=== PATIENT | female | born 2000 | race Caucasian/White ===

== ENCOUNTER 2024-03-09 22:02 | Outpatient (CLI) | payer BC, SELFPAY ==
[2024-03-09 22:31] VITALS: BP 137/90; PULSE 101
[2024-03-09 22:43] LABS: Basophils Percent Auto 0.2 % (0.2-1.2); Eosinophils Absolute Auto 0.1 K/mm3 (0-0.3); Eosinophils Percent Auto 1.1 % (0-4.4); Hematocrit 33.5 % (37.0-47.0); Hemoglobin 11.1 g/dL (12.0-15.0); Immature Granulocyte Absolute 0.05 K/mm3 (0.00-0.031); Immature Granulocyte Percent A 0.5 % (0-0.5); Lymphocytes Absolute Auto 1.79 K/mm3 (0.9-3.2); Lymphocytes Percent Auto 19.3 % (18.3-44.2); Mean Corpuscular HGB Conc 33.1 g/dl (32-36); Mean Corpuscular Hemoglobin 31.4 pg (26-34); Mean Corpuscular Volume 94.6 fl (80-100); Mean Platelet Volume 12.9 fl (7.4-10.4); Monocytes Absolute Auto 0.7 K/mm3 (0.1-0.6); Monocytes Percent Auto 7.1 % (2.6-8.5); Neutrophils Absolute Auto 6.7 K/mm3 (1.3-6.7); Neutrophils Percent Auto 71.8 % (45.5-73.1); Platelet Count Result 135 k/mm3 (150-375); Red Blood Count 3.54 M/mm3 (4.2-5.4); Red Cell Distribution Width 13.8 % (11.5-14.5); White Blood Count 9.3 K/mm3 (4.5-10.0)
[2024-03-09 22:45] LABS: Add Urine Microscopic? NO; Appearance Urine Clear (Clear); Bilirubin Urine Negative (Negative); Blood Urine Negative (Negative); Color Urine Yellow (Yellow); Glucose Urine UA Negative (Negative); Ketones Urine Negative (Negative); Leukocyte Esterase Ur Negative LEU/UL (Negative); Nitrate Urine Negative (Negative); Protein Urine Negative (Negative); Specific Grav Ur 1.003 (1.001-1.035); Urobilinogen Urine 0.2 mg/dL (<2.0)
[2024-03-09 22:46] VITALS: BP 117/59; PULSE 115
[2024-03-09 22:50] VITALS: BMI 37.5
[2024-03-09 22:54] LABS: Alanine Aminotransferase 13 U/L (6-35); Albumin Level 3.7 g/dL (3.5-5.1); Alkaline Phosphatase 231 U/L (38-126); Anion Gap 9 mmol/L (4-12); Aspartate Amino Transferase 21 U/L (14-36); Bilirubin,Total 0.6 mg/dL (0.2-1.3); Blood Urea Nitrogen 6 mg/dL (7-17); Calcium 9.1 mg/dL (8.4-10.2); Carbon Dioxide 20 mmol/L (22-30); Chloride 105 mmol/L (98-107); Estimated CRCL calculation 154 ml/min; Estimated Glomerular Filt Rate > 60; Glucose 118 mg/dL (65-110); Potassium 3.7 mmol/L (3.4-5.0); Sodium 134 mmol/L (137-145); Uric Acid 3.6 mg/dL (2.5-7.5)
[2024-03-09 22:55] LABS: Creatinine Urine 17.4 mg/dL; Total Protein Urine Random 14 mg/dL
[2024-03-09 23:00] VITALS: BP 118/72; PULSE 98
--- NOTE | 2024-03-09 23:10 | PC.NURSE ---
Called Dr Daniel Chu with pt status. Lab results and BPs given. Pt states that she has had a headache and nausea today, with no relief from Tylenol. May D/C home. Give Flexeril prior to admission. Pt's significant other is driving home.
[2024-03-09 23:15] VITALS: BP 125/74; PULSE 98
[2024-03-09] MEDS: CYCLOBENZAPRINE HCL 10 MG TABLET PO (23:24)
== END 2024-03-09 23:25 | disposition home or self-care (01) ==
LOC: ANHOBOP 22:17 → ANHOBPP 03-15 09:20
PROVIDERS: Visit Provider Obstetrics & Gynecology
DX: O13.9 Gestational [pregnancy-induced] hypertension without significant proteinuria, unspecified trimester (principal); Z3A.00 Weeks of gestation of pregnancy not specified
CPT/HCPCS: 36415; 59025; 80053; 81003; 82570; 84156; 84550; 85025; 99199; A9270

== ENCOUNTER 2024-03-19 17:43 | Outpatient (CLI) | payer BC, SELFPAY ==
[2024-03-19 18:03] LABS: Basophils Percent Auto 0.4 % (0.2-1.2); Eosinophils Absolute Auto 0.1 K/mm3 (0-0.3); Eosinophils Percent Auto 0.8 % (0-4.4); Hematocrit 36.3 % (37.0-47.0); Immature Granulocyte Absolute 0.04 K/mm3 (0.00-0.031); Immature Granulocyte Percent A 0.5 % (0-0.5); Immature Platelet Fraction Pct 16.1 % (0.9-11.2); Lymphocytes Absolute Auto 1.76 K/mm3 (0.9-3.2); Lymphocytes Percent Auto 20.7 % (18.3-44.2); Mean Corpuscular HGB Conc 33.1 g/dl (32-36); Mean Corpuscular Hemoglobin 31.3 pg (26-34); Mean Corpuscular Volume 94.8 fl (80-100); Mean Platelet Volume 13.2 fl (7.4-10.4); Monocytes Absolute Auto 0.6 K/mm3 (0.1-0.6); Monocytes Percent Auto 7.2 % (2.6-8.5); Neutrophils Percent Auto 70.4 % (45.5-73.1); Platelet Count Result 146 k/mm3 (150-375); Red Blood Count 3.83 M/mm3 (4.2-5.4); Red Cell Distribution Width 14.4 % (11.5-14.5); White Blood Count 8.5 K/mm3 (4.5-10.0)
[2024-03-19 18:09] LABS: Creatinine Urine 54.2 mg/dL; Total Protein Urine Random 10 mg/dL; Ur Ttl Prot Creatinine Ratio 0.18 mg/mg (0-0.20)
[2024-03-19 18:12] LABS: Alanine Aminotransferase 11 U/L (6-35); Albumin Level 3.7 g/dL (3.5-5.1); Alkaline Phosphatase 254 U/L (38-126); Anion Gap 8 mmol/L (4-12); Aspartate Amino Transferase 21 U/L (14-36); Bilirubin,Total 0.7 mg/dL (0.2-1.3); Blood Urea Nitrogen 7 mg/dL (7-17); Calcium 8.9 mg/dL (8.4-10.2); Carbon Dioxide 19 mmol/L (22-30); Chloride 107 mmol/L (98-107); Estimated Glomerular Filt Rate > 60; Glucose 105 mg/dL (65-110); Potassium 3.8 mmol/L (3.4-5.0); Sodium 134 mmol/L (137-145); Uric Acid 4.5 mg/dL (2.5-7.5)
[2024-03-19 18:14] VITALS: BP 130/98; PULSE 118
[2024-03-19 18:15] VITALS: BP 138/90; PULSE 106
[2024-03-19 18:26] LABS: Add Urine Microscopic? NO; Appearance Urine Clear (Clear); Bilirubin Urine Negative (Negative); Blood Urine Negative (Negative); Color Urine Yellow (Yellow); Glucose Urine UA Negative (Negative); Ketones Urine Negative (Negative); Leukocyte Esterase Ur Negative LEU/UL (Negative); Nitrate Urine Negative (Negative); Protein Urine Negative (Negative); Specific Grav Ur 1.009 (1.001-1.035); pH Urine 7.5 (5.0-9.0)
[2024-03-19 18:30] VITALS: BP 134/91; PULSE 115
[2024-03-19 18:45] VITALS: BP 135/99; PULSE 130
[2024-03-19] MEDS: ACETAMINOPHEN 500 MG TABLET 1000 MG PO (18:52)
== END 2024-03-19 19:15 | disposition home or self-care (01) ==
LOC: ANHOBOP 17:47 → ANHLDR 17:54
PROVIDERS: Visit Provider Obstetrics & Gynecology Gynecology
DX: O13.9 Gestational [pregnancy-induced] hypertension without significant proteinuria, unspecified trimester (principal); Z3A.00 Weeks of gestation of pregnancy not specified
CPT/HCPCS: 36415; 80053; 81003; 82570; 84156; 84550; 85025; 85055; 99199; A9270

== ENCOUNTER 2024-03-20 17:07 | Inpatient (IN) | payer BC, SELFPAY ==
[2024-03-20] VITALS (8 sets, daily range): BP systolic 127–138; BP diastolic 78–98; PULSE 84–105; TEMP 36.9; BMI 40.3
[2024-03-20] MEDS: DINOPROSTONE 10 MG VAG INSERT VAGINAL (17:50)
[2024-03-20 17:52] LABS: Basophils Percent Auto 0.3 % (0.2-1.2); Eosinophils Absolute Auto 0.1 K/mm3 (0-0.3); Eosinophils Percent Auto 0.6 % (0-4.4); Hematocrit 34.4 % (37.0-47.0); Hemoglobin 11.6 g/dL (12.0-15.0); Immature Granulocyte Absolute 0.08 K/mm3 (0.00-0.031); Immature Granulocyte Percent A 0.7 % (0-0.5); Lymphocytes Absolute Auto 1.45 K/mm3 (0.9-3.2); Lymphocytes Percent Auto 13.4 % (18.3-44.2); Mean Corpuscular HGB Conc 33.7 g/dl (32-36); Mean Corpuscular Volume 94.8 fl (80-100); Mean Platelet Volume 13.3 fl (7.4-10.4); Monocytes Absolute Auto 0.7 K/mm3 (0.1-0.6); Neutrophils Absolute Auto 8.6 K/mm3 (1.3-6.7); Platelet Count Result 145 k/mm3 (150-375); Red Blood Count 3.63 M/mm3 (4.2-5.4); Red Cell Distribution Width 14.4 % (11.5-14.5); White Blood Count 10.8 K/mm3 (4.5-10.0)
--- NOTE | 2024-03-20 18:06 | LDADM ---
This patient, Glenys Pitts, was admitted to Labor/Delivery/Recovery 108 on 03/20/24 at 17:07. Plans for labor, pain management and were discussed with patient. Patient/family oriented to hospital policies and general routines including ID bracelet, bed and alarms, visiting hours, pain management, procedures, bathroom and other care routines, personal items, smoking policy, room service/diet and guest tray routines, infant security routines, and visiting hours. Patient/Family are encouraged to report perceived risks to care and to ask questions if they do not understand what they are told or what they should do. See OBIX for further documentation.
[2024-03-20 18:26] LABS: Rapid Plasma Reagin Non-Reactive (NonReactive)
[2024-03-20 18:36] LABS: Rubella IgG Antibody 6.1 IU/ML
[2024-03-20 18:46] LABS: HIV 1/2 Ab P24 Ag Result Negative (Negative)
[2024-03-21] VITALS (204 sets, daily range): BP systolic 70–147; BP diastolic 38–118; PULSE 45–144; RESP 18–20; TEMP 36.5–37.2; O2SAT 86–100
[2024-03-21] MEDS: fentaNYL CITRATE INJ (*CRX) 100 MCG/2 ML VIAL 50 MCG IV PUSH (02:24)
--- NOTE | 2024-03-21 02:51 | PM.IMHP ---
H&P: HPI History of Present Illness Date/Time: 03/21/24 02:51 Chief Complaint: Elevated blood pressure term Narrative: 23-year-old para 0 last menstrual of 06/26/2023, EDC is 04/02/2024, who presents at term for induction of labor secondary to elevated blood pressures she is negative for group B strep. She is on [place] rupture at 12:30 a.m. this a.m. [facility] Family History Family History Other Patient denies significant medical history Social History Social History Smoking status: Never smoker Substance use: never Do You Feel Safe in your Home?: No Lack of Transportation: No Lack of Food: Never True Current Housing: I Have Housing Concerned About Future Housing: No Difficulty Paying Gas/Electric Bills: No Difficulty Paying for Meds: No Currently Unemployed: No Education: Associate Degree Difficulty w/ Childcare or Family Care: No Spiritual care concerns: No Meds Home Medications and Allergies Home Medications Medication Instructions Recorded Confirmed Type prenat.vits,taniya,[id number]-iaxmc 1 tablet PO DAILY 03/03/24 03/20/24 History Acetaminophen Extra Strength 500 - 1,000 mg PO BID PRN h/a 03/20/24 03/20/24 History Allergies Allergy/AdvReac Type Severity Reaction Status Date / Time No Known Allergies Allergy Verified 03/03/24 13:35 Vital Signs Vital Signs - 24 hr 03/20/24 17:44 03/20/24 18:01 03/20/24 18:15 Temperature 98.4 F Pulse Rate 99 97 Blood Pressure 136/89 127/83 Oxygen Delivery 03/20/24 18:30 03/20/24 18:46 03/20/24 19:00 Temperature Pulse Rate 105 H 89 86 Blood Pressure 130/85 130/78 133/81 Oxygen Delivery 03/20/24 19:15 03/20/24 19:30 03/21/24 00:01 Temperature Pulse Rate 102 H 84 Blood Pressure 127/98 H 138/91 H 107/92 H Oxygen Delivery 03/21/24 01:45 03/21/24 02:19 03/21/24 02:31 Temperature 98.3 F Pulse Rate 79 84 Blood Pressure 124/77 113/60 Oxygen Delivery 03/20/24 18:06 Temperature Pulse Rate Blood Pressure Oxygen Delivery Room Air Exam Const: General: cooperative, healthy appearing and comfortable Nutritional Appearance: average body habitus Orientation/consciousness: oriented to person, oriented to place and oriented to time Resp: Effort & Inspection: normal respiratory effort Cardio: Rate: regular rate Rhythm: regular rhythm Heart sounds: S1 normal heart sound present and S2 normal heart sound present GI: Inspection: normal to inspection ( gravid soft) : External Female Exam: normal external appearance Speculum Exam - Vagina: normal appearance of the vagina Speculum Exam - Cervix: normal appearance of the cervix ( cervix 2cm 50%. Clear fluid. FHTs reassuring) H&P: Results Labs Labs: Short CBC 03/20/24 Range/Units 17:38 WBC 10.8 H (4.5-10.0) K/mm3 Hgb 11.6 L (12.0-15.0) g/dL Hct 34.4 L (37.0-47.0) % Plt Count 145 L (150-375) k/mm3 Assessment and Plan Assessment and plan (1) Term : Code(s): Z34.90 - Encounter for supervision of normal , unspecified, unspecified trimester Status: Acute (2) Gestational hypertension: Code(s): O13.9 - Gestational [-induced] hypertension without significant proteinuria, unspecified trimester Status: Acute Plan medical induction of labor spontaneous vaginal delivery is expected. She is epidural candidate
[2024-03-21] MEDS: LACTATED RINGERS 1,000 ML 125 ML IV CONT ×2 (03:08→07:11)
--- NOTE | 2024-03-21 03:53 | PM.OBPNLAB ---
Pain Control Date/time seen: 03/21/24 03:53 Pain control: tolerating well Pelvic Exam Dilation (cm): 3 Effacement (%): 100 station: -1 Amniotic membrane status: Leaking Contractions Monitor mode: Internal ( IUPC placed)
--- NOTE | 2024-03-21 04:29 | WPDANESEPPF ---
Anes - Initial Pre Proc Eval Date/Time: 03/21/24 04:29 Surgeon: Jorge Chu MD Pre Op Diagnosis: Induction of Labor/GHTN Patient Data Age: 23 Gender: F Height: 1.57 m Weight: 100 kg Last Vital Signs Temp 36.8 C 03/21/24 01:45 Pulse 113 H 03/21/24 04:28 BP 95/44 L 03/21/24 04:28 Pulse Ox 100 03/21/24 04:29 O2 Del Method Room Air 03/20/24 18:06 Allergies Allergy/AdvReac Type Severity Reaction Status Date / Time No Known Allergies Allergy Verified 03/03/24 13:35 Home Medications Medication Instructions Recorded Confirmed Type prenat.vits,taniya,pqk-[id number]-dxywk 1 tablet PO DAILY 03/03/24 03/20/24 History Acetaminophen Extra Strength 500 - 1,000 mg PO BID PRN h/a 03/20/24 03/20/24 History Laboratory Tests 03/20/24 17:38 WBC 10.8 H K/mm3 (4.5-10.0) RBC 3.63 L M/mm3 (4.2-5.4) Hgb 11.6 L g/dL (12.0-15.0) Hct 34.4 L % (37.0-47.0) MCV 94.8 fl (80-100) MCH 32.0 pg (26-34) MCHC 33.7 g/dl (32-36) RDW 14.4 % (11.5-14.5) Plt Count 145 L k/mm3 (150-375) MPV 13.3 H fl (7.4-10.4) Immature Gran % (Auto) 0.7 H % (0-0.5) Neut % (Auto) 79.0 H % (45.5-73.1) Lymph % (Auto) 13.4 L % (18.3-44.2) [place] % (Auto) 6.0 % (2.6-8.5) Eos % (Auto) 0.6 % (0-4.4) Baso % (Auto) 0.3 % (0.2-1.2) Lymph # (Auto) 1.45 K/mm3 (0.9-3.2) [place] # (Auto) 0.7 H K/mm3 (0.1-0.6) Eos # (Auto) 0.1 K/mm3 (0-0.3) Baso # (Auto) 0.0 K/mm3 (0.0-0.1) Abs Immat Gran (auto) 0.08 H K/mm3 (0.00-0.031) Absolute Neuts (auto) 8.6 H K/mm3 (1.3-6.7) Absolute Nucleated RBC 0.000 K/mm3 (0.0-0.012) Nucleated RBC % 0.0 % (0.0-0.2) % Immature Plt Fraction 18.0 H % (0.9-11.2) RPR Non-reactive (NonReactive) HIV 1&2 Ab/P24 Ag 4thGn Negative (Negative) Rubella IgG Antibody 6.1 L IU/ML (10 - ) Blood Type O Positive Antibody Screen Negative Patient hx anesthesia problems: none Family hx anesthesia problems: none Results Review: All pre-operative results and documents have been reviewed as part of the pre-operative evaluation. [facility] Family History Family History Other Patient denies significant medical history Social History Social History Smoking status: Never smoker Substance use: never Do You Feel Safe in your Home?: No Lack of Transportation: No Lack of Food: Never True Current Housing: I Have Housing Concerned About Future Housing: No Difficulty Paying Gas/Electric Bills: No Difficulty Paying for Meds: No Currently Unemployed: No Education: Associate Degree Difficulty w/ Childcare or Family Care: No Spiritual care concerns: No Anes - Eval Final PreProcedure Day of Procedure 03/21/24 04:29 Patient weight: morbidly obese Neurological: alert and oriented ASA classification: III Emergent: no Anesthetic plan: proceed Anesthesia type and monitoring: regional epidural and standard monitoring Results Review: All pre-operative results and documents have been reviewed as part of the pre-operative evaluation. Informed Consent: The patient's anesthetic plan and its attendant risks and benefits were discussed with the patient/family/POA. Questions were solicited and answers provided to the satisfaction of the patient/family/POA.
[2024-03-21] MEDS: PHENYLEPHRINE 1,000 MCG/10 ML SYRINGE 100 MCG IV PUSH ×2 (04:45→04:53)
[2024-03-21] MEDS: OXYTOCIN 30 UNITS/NS 500 ML 30 UNITS/500 ML BAG 6 UNITS IV CONT ×2 (05:48→17:05)
--- NOTE | 2024-03-21 07:47 | PM.OBPNLAB ---
Pain Control Date/time seen: 03/21/24 07:47 Pain control: tolerating well and epidural Pelvic Exam Dilation (cm): 8 Effacement (%): 100 station: -1 Amniotic membrane status: Leaking Contractions Monitor mode: Internal ( IUPC placed)
[2024-03-21] MEDS: ONDANSETRON INJ 4 MG/2 ML VIAL IV PUSH (07:55)
[2024-03-21] MEDS: ACETAMINOPHEN 500 MG TABLET 1000 MG PO (12:24)
--- NOTE | 2024-03-21 16:00 | PM.OBPNLAB ---
Pain Control Date/time seen: 03/21/24 16:00 Pain control: tolerating well and epidural Pelvic Exam Dilation (cm): 10 Effacement (%): 100 station: -1 Amniotic membrane status: Leaking Contractions Monitor mode: Internal ( IUPC placed)
--- NOTE | 2024-03-21 16:50 | PM.OBPRVD ---
OB - Vaginal Delivery Note Procedure Delivery date: 03/21/24 Events: Gestational Hypertension Induction method: Per Cervidil Protocol Delivery augmentation: Pitocin Delivery monitor: External FHT, Internal FHT and Internal Uterine Route of delivery: Episiotomy description: None Laceration Description: Perineal - 1st Degree Delivery repair: vicryl Specimen: No Quantitative Blood Loss (ml): 61 Anesthesia type: Epidural Disposition: Floor Complications: No immediate complications Narrative: Patient was admitted for induction of labor secondary to elevated blood pressures on the evening of 03/20/2024. Cervidil was placed she spontaneously ruptured a.m. she progressed to an unremarkable 1st stage of labor to completely dilated she pushed for couple hours and the of delivered the head spontaneously in the CHAY position. Anterior posterior shoulder spontaneously. Cord clamped x2 and cut and the passed off the table given Apgars of 9 [id number] 9 [id number]. Cord blood was drawn placenta delivered intact spontaneously. Twenty of Pitocin placed in IV to help firm the uterus. After aspect lateral sidewalls of first-degree laceration was noted and it was closed with [id number] 0 Vicryl blood loss was estimated at61cc. All sponge, needle, instrument counts were correct. There were no immediate complications [place] Baby Date of : 03/21/24 Time of : 16:37 Gestational Age by Date: 38 gender: Male Weight (pounds): 8 Weight (ounces): 0 presentation: vertex position: Right Occiput Anterior Placenta delivery description: Spontaneous Cord Vessel Description: 3 Vessels score one minute: 9 score five minutes: 9
--- NOTE | 2024-03-21 16:55 | PM.DS ---
DS: Admitting Diagnosis Discharge Date 03/23/2024 Admitting Diagnosis term /gestational hypertension DS: Discharge Diagnosis Discharge Diagnosis (1) Gestational hypertension: Code(s): O13.9 - Gestational [-induced] hypertension without significant proteinuria, unspecified trimester Status: Acute (2) Term : Code(s): Z34.90 - Encounter for supervision of normal , unspecified, unspecified trimester Status: Acute DS: Summary Hospital Course Reason for hospitalization: patient was admitted for induction of labor. She underwent spontaneous vaginal delivery on 04/13. Hospital Course: Patient says course unremarkable. She she was afebrile she was up, voiding without difficulty, eating regular diet, ambulating, generally without complaints. Time Spent with Patient Time attestation: Total time spent providing and/or coordinating discharge services: Exam Const: General: cooperative, healthy appearing and comfortable Orientation/consciousness: oriented to person, oriented to place and oriented to time Resp: Effort & Inspection: normal respiratory effort Cardio: Rate: regular rate Rhythm: regular rhythm Heart sounds: S1 normal heart sound present and S2 normal heart sound present GI: Inspection: normal to inspection DS: Data Data Completed and Pending Labs on day of discharge: Labs from last 24 hours 03/20/24 17:38 WBC 10.8 H RBC 3.63 L Hgb 11.6 L Hct 34.4 L MCV 94.8 MCH 32.0 MCHC 33.7 RDW 14.4 Plt Count 145 L MPV 13.3 H Immature Gran % (Auto) 0.7 H Neut % (Auto) 79.0 H Lymph % (Auto) 13.4 L [place] % (Auto) 6.0 Eos % (Auto) 0.6 Baso % (Auto) 0.3 Lymph # (Auto) 1.45 [place] # (Auto) 0.7 H Eos # (Auto) 0.1 Baso # (Auto) 0.0 Abs Immat Gran (auto) 0.08 H Absolute Neuts (auto) 8.6 H Absolute Nucleated RBC 0.000 Nucleated RBC % 0.0 % Immature Plt Fraction 18.0 H RPR Non-reactive HIV 1&2 Ab/P24 Ag 4thGn Negative Rubella IgG Antibody 6.1 L Blood Type O Positive Antibody Screen Negative Discharge Plan Discharge Attending physician on discharge: Jorge Agosto Discharging Clinician: Dalla Clayton,Jorge J. Patient Disposition: Home, Self-Care Activity: may shower and pelvic rest Diet: heart healthy Wound Care Instructions: follow printed instructions Patient Instructions: Antibiotic Form Stand Alone Forms: General Discharge Information Follow-up/Referrals: Jorge Agosto MD [Physician] - Discharge Medications: Continued prenat.vits,taniya,yhd-qtgw-yilfu Tablet 1 tablet PO DAILY Acetaminophen Extra Strength 500 mg 500 - 1,000 mg PO BID PRN (Reason: h/a) Date of admission: 03/20/24 17:07 Primary Care Provider: UNKNOWN,DOCTOR Admitting Provider: Jorge Agosto Attending physician on admission: Jorge Agosto Condition: Stable
[2024-03-21] MEDS: IBUPROFEN 600 MG TABLET PO (18:06)
--- NOTE | 2024-03-21 19:23 | OBPPTRN ---
Patient transferred to post room #277 via wheelchair. Support person present. Oriented to unit, room, information board, rooming in, admission packet and security measures. Patient verbalizes understanding.
[2024-03-22 04:29] LABS: Hematocrit 31.1 % (37.0-47.0); Hemoglobin 10.3 g/dL (12.0-15.0)
[2024-03-22 04:32] VITALS: BP 106/73
[2024-03-22 06:55] VITALS: BP 129/87; PULSE 78; RESP 18; TEMP 36.4; O2SAT 97
[2024-03-22] MEDS: MULTIVIT/MIN/PREN/FOL AC/IRON TABLET 1 TAB PO (06:55)
[2024-03-22] MEDS: DOCUSATE SODIUM 100 MG CAPSULE PO ×2 (06:55→16:58)
--- NOTE | 2024-03-22 07:05 | PM.OBPNVD ---
OB - PN: Subj Subjective Date/time seen: 03/22/24 07:05 Patient comments: no complaints and pain well controlled baby status: doing well and nursing well OB - PN: Obj Data Labs 03/22/24 03:27 Labs: Laboratory Results - last 24 hr 03/22/24 03:27 Hgb 10.3 L Hct 31.1 L OB - PN A/P Plan day: 1 Plan: routine care Time Spent With Patient Time: Total time spent is greater than 50% in coordination of care (as documented) at patient's floor/unit and/or counseling patient: Time with patient: less than 15 minutes Exam Const: General: cooperative, healthy appearing and comfortable Nutritional Appearance: average body habitus Orientation/consciousness: oriented to person, oriented to place and oriented to time Resp: Effort & Inspection: normal respiratory effort Cardio: Rate: regular rate Rhythm: regular rhythm Heart sounds: S1 normal heart sound present and S2 normal heart sound present GI: Inspection: normal to inspection
[2024-03-22] MEDS: IBUPROFEN 600 MG TABLET PO ×2 (08:59→21:30)
[2024-03-22 12:14] VITALS: BP 126/77; PULSE 82; RESP 16; TEMP 36.5; O2SAT 98
[2024-03-22 16:25] VITALS: BP 133/90; PULSE 91; RESP 18; TEMP 36.6; O2SAT 100
--- NOTE | 2024-03-22 16:54 | PC.NURSE ---
Introductions were made, then consulted with patient to assess needs related to . Mother led the conversation with her?plans to feed?her and the?experience so far. Mother states that feedings have been going well today. Mother has visitors in room but will call this RN once they leave to review her personal breast pump and assist with next feeding to assure infants latch is appropriate. Communication board updated with contact information.
[2024-03-22 19:16] VITALS: BP 127/83; PULSE 83; RESP 20; TEMP 36.9; O2SAT 98
[2024-03-22 22:22] VITALS: BP 117/68
--- NOTE | 2024-03-23 07:01 | PM.OBPNVD ---
OB - PN: Subj Subjective Date/time seen: 03/23/24 07:01 Patient comments: no complaints and pain well controlled baby status: doing well and nursing well OB - PN: Obj Data Labs 03/22/24 03:27 OB - PN A/P Plan day: 2 Plan: routine care, discharge home and follow up 6 weeks Time Spent With Patient Time: Total time spent is greater than 50% in coordination of care (as documented) at patient's floor/unit and/or counseling patient: Time with patient: less than 15 minutes Exam Const: General: cooperative, healthy appearing and comfortable Nutritional Appearance: average body habitus Orientation/consciousness: oriented to person, oriented to place and oriented to time Resp: Effort & Inspection: normal respiratory effort GI: Inspection: normal to inspection
[2024-03-23 07:20] VITALS: BP 143/86; PULSE 89; RESP 16; TEMP 36.6; O2SAT 99
[2024-03-23] MEDS: MULTIVIT/MIN/PREN/FOL AC/IRON TABLET 1 TAB PO (07:55)
[2024-03-23] MEDS: IBUPROFEN 600 MG TABLET PO (07:56)
[2024-03-23] MEDS: DOCUSATE SODIUM 100 MG CAPSULE PO (07:56)
[2024-03-23] MEDS: MEASLES,MUMPS,RUBELLA VACCINE 0.5 ML VIAL SUB-Q (07:57)
[2024-03-23] MEDS: INFLUENZA TRIVALENT VACCINE 45 MCG/0.5 ML SYRINGE IM (09:24)
--- NOTE | 2024-03-23 09:55 | PC.NURSE ---
0700- Consulted with patient to assess needs related to . Discussed with mother her successes, concerns and any questions she has. We reviewed working with the , supporting breast, obtaining a deep latch, good positioning. Encouraged understanding the benefits of skin to skin, responding to feeding cues, frequencies of feeding 8-12 times in 24 hours (approximately 2-3 hours), duration of feedings, milk production, and pumping when infant doesn't breastfeed. Reviewed positioning and alignment, supporting breast, off-centered (asymmetrical latch) and leading with the chin with big, open, wide gape. latched as deeply as he could to the [left] breast in [cradle] position. The left nipple is larger and baby can only get the nipple in his mouth. Mom uses the nipple shield on the right side because the nipple is smaller and has a hard time maintaining the latch. Education given to the mother of how to visualize the suckling. The was [not able] to maintain latch. Nipple care reviewed with optimal latch, good positioning. Encouraged regular pumping if infant doesn't breastfeed well, and while using the nipple shield. She has a Spectra pump and did pump with the [facility] Medela pump once in the night. She supplements with formula per her preference. Mother voiced understanding of the education shared, to call for assistance if the does not latch or if there is discomfort with . Reported to the Primary RN. 0924- Mother is feeding appropriately for growth of and understands stimulating to eat if needed. Infant has had appropriate feedings in the last 24 hours meets the outcomes for weight, output, blood sugar and jaundice at this time. Reinforced understanding of milk production, transition of milk, signs of adequate intake, transition of stool, prevention/relief of engorgement, plugged ducts, mastitis, responsive watching for feeding cues, the different methods of stimulating infant to breastfeed 1-3 hours after the start of the last feeding, community resources, and when to call a provider using the resource of the feeding sheet along with the mom and baby guide. Handouts given including pumping primer and is baby getting enough. Mother voiced understanding of the information shared, is confident to continue effectively her infant at home, when to call for assistance, denies any additional assistance or education at this time. Reported to the Primary RN.
[2024-03-24 14:20] VITALS: BP 140/88; PULSE 89; RESP 18; TEMP 36.8; O2SAT 98
== END 2024-03-23 11:10 | disposition home or self-care (01) | DRG 807 ==
LOC: ANHLDR 03-21 16:58 → ANHOB2 03-21 19:35
PROVIDERS: Admitting Provider Obstetrics & Gynecology; Visit Provider Obstetrics & Gynecology
DX: O13.4 Gestational [pregnancy-induced] hypertension without significant proteinuria, complicating childbirth (principal); Z37.0 Single live birth; Z3A.38 38 weeks gestation of pregnancy; O70.0 First degree perineal laceration during delivery; Z23 Encounter for immunization
CPT/HCPCS: 36415; 85014; 85018; 85025; 85055; 86592; 86703; 86762; 86850; 86900; 86901; 90471; 90656; 90710; A9270; G0008; G0432; J2371; J2405; J2590; J2795; J3010; J7120

== ENCOUNTER 2024-07-03 10:03 | Outpatient (RCR) | payer BC, SELFPAY ==
--- NOTE | 2024-07-03 10:05 | PC.NURSE ---
In- 1005 Out- 1045 Reason for visit: Glenys is concerned that baby Chucho isn't latching well on the left breast. She also has significantly less milk from the right breast than from the left. Baby is refusing the breast at some feedings. History: Glenys delivered vaginally on 03/21/24. Her was complicated by gestational hypertension. She struggled with latch in the beginning but after a week, baby was exclusively . She has successfully breastfed for the last 3 months. She started on a progesterone only control in May. She has had three periods since beginning control. The right breast has always had a significantly lower milk production than the left breast. She had a milk bleb on the left nipple and she tried using a shield to protect the nipple. The shield causing rubbing and the nipple became cracked and was bleeding. Since then, she has only pumped the left breast and fed baby from the right breast. History: Chucho was initially supplementing with formula while he was being treated for elevated bilirubin. At 1 week of age, he was able to latch and effectively feed at the breast. He has been exclusively since. He has started refusing the breast at some feedings and is fussy. Mom is supplementing him with pumped breastmilk after he feeds from the right breast due to it's lower milk supply. Observations: Glenys tried to latch Chucho to the right breast but he would not open to latch and became fussy. She then latched baby to the left breast off and on several times. The latch was very good today, with baby taking a large mouthful of breast tissue. His upper lip tends to roll in and mom says she usually has to flip it out at each feeding. Today, latching to the left nipple was not painful and mom was reassured that the latch is good and her pain/trauma was likely cause by the milk bleb scabbing and use of the nipple shield rather than a latch problem. Baby had heavy swallows and suckled for a few minutes at a time before fussing. Mom would attempt to burp him and offer the breast again. He spit up a small amount of milk while burping. Mom says that she does feel like the left breast has a quick letdown but infant didn't seem to struggle or pull away with letdown. Plan of Care: Because Glenys has had 3 periods in the last month, she is advised to call her [employer] Dr. Daniel Chu to follow up. We discussed that beginning menstruation again after can cause infants to refuse the breast. Encouraged continued feeding at the breast, and pumping the right breast after feedings until 2 minutes after the milk stops flowing. This will fully empty the breast and encourage an increase in milk production. We measured mom's nipples to ensure she is using a good flange size. She measures at 16mm after feeding and 15mm before feeding. She is using the 21mm flange and will try the 19mm flange to see if that increases production at all. She was given the Increasing Milk Supply handout with tips to use to help increase her supply. She has a Spectra and Mom Cozy pump and she states they work equally well. Advised trying the Spectra on the right breast to see if that helps. The cracked and sore left nipple is almost completely healed and she is able to latch to that side without pain. No further intervention is needed, as this was not due to a latch issue. Follow up plans: Mom will try the suggested interventions to increase her milk supply in the right breast (not the left to prevent oversupply). She will talk to her doctor about her frequent periods. She will allow baby to feed from both breasts frequently and supplement with pumped milk if he refuses to breastfeed. Mom is strongly encouraged to call us or make another appointment if her milk supply does not increase or if baby continues to refuse the breast. Patient agrees to call as needed.
== END 2024-10-01 23:59 | disposition home or self-care (01) ==
LOC: ANHOBOP 10:03
PROVIDERS: Visit Provider Pediatrics
DX: O92.79 Other disorders of lactation (principal)
CPT/HCPCS: 99202; G0463

== ENCOUNTER 2024-07-21 12:03 | Emergency (ER) | payer BC, SELFPAY ==
--- NOTE | 2024-07-21 12:05 | ED_ITS ---
HPI - Eye Problem General Chief complaint: Eye Problems Stated complaint: SWOLLEN EYE Time Seen by Provider: 07/21/24 12:04 Source: patient Mode of arrival: ambulatory Limitations: no limitations History of Present Illness HPI Narrative: Patient is a 23-year-old female who presents with a swollen right upper eyelid for several days. Has been using warm compresses and washing face daily. Denies any vision changes, drainage from a high, itching. Reports pain 5/10. Related Data Home Medications ?Medication ?Instructions ?Recorded ?Confirmed ?Last Taken ?Type prenat.vits,taniya,[id number] 1 tablet PO DAILY 03/03/24 07/21/24 03/19/24 History drospirenone (contraceptive) 4 mg 4 mg PO DAILY 07/21/24 07/21/24 Unknown History (28) tablet (Slynd) Allergies Allergy/AdvReac Type Severity Reaction Status Date / Time No Known Allergies Allergy Verified 07/21/24 12:22 Review of Systems Review of Systems: All systems reviewed & are unremarkable except as noted in HPI and below Constitutional: Constitutional: Denies body ache(s), Denies fever(s), Denies headache(s), Denies malaise and Denies weakness Eyes: Eyes: Denies blurry vision, Denies eye discharge, Denies irritation, Denies itchy eyes, Denies loss of vision, Reports eye pain and Reports other (eye lid swelling) ENT: Denies otalgia, Denies headache(s), Denies nasal discharge, Denies sinus pain and Denies sore throat Cardiovascular: Cardiovascular: Denies chest pain, Denies irregular heart rhythm and Denies dyspnea Respiratory: Respiratory: Denies dyspnea Gastrointestinal: Gastrointestinal: Denies abdominal pain, Denies diarrhea, Denies nausea and Denies vomiting Musculoskeletal: Musculoskeletal: Denies back pain, Denies myalgias and Denies arthralgias Integumentary/Breasts: Skin/Breast: Denies pruritus and Denies rash Neurologic: Denies headache(s), Denies loss of vision and Denies weakness Psychiatric: Psychiatric: Reports no additional psychiatric complaints Allergic/Immunologic: Allergic/Immunologic: Reports itchy eyes PMFSH Family History Family History Other Patient denies significant medical history Social History Social History Smoking status: Never smoker Substance use: never Do You Feel Safe in your Home?: No Lack of Transportation: No Lack of Food: Never True Current Housing: I Have Housing Concerned About Future Housing: No Difficulty Paying Gas/Electric Bills: No Difficulty Paying for Meds: No Currently Unemployed: No Education: Associate Degree Difficulty w/ Childcare or Family Care: No Spiritual care concerns: No Comments At time of signature, agree with nursing past medical, surgical, social and family history. There is no relevant family history pertinent to the presenting complaint. Exam Const: General: cooperative, healthy appearing, comfortable, no acute distress and well nourished Nutritional Appearance: well nourished Orientation/consciousness: patient oriented x3 Limitations: no limitations HENMT: Head: normal to inspection, normocephalic and atraumatic Ears: external ears normal Face/Nose/Sinus: Normal external nose present, normal facial exam and face symmetric Face and sinus: normal facial exam and face symmetric Mouth: Yes lip normal Eyes: General: appearance normal, both eyes and all related structures Visual Evans: normal visual evans by confrontation Alignment and Position: alignment normal and position normal Periorbital: periorbital findings normal Eyelids: eyelid abnormality right upper eyelid erythema (minor), lid margins crusty/scaly, swelling and tenderness Conjunctivae: conjunctivae normal Sclera: sclerae normal Pupils: Equal, round and reactive pupils present EOM: EOMs intact bilaterally Direct Ophthalmoscopy: no photophobia Other: No hyphema, no foreign body under the lids. Neck: Neck: normal visual inspection, full ROM, no lymphadenopathy and no meningeal signs Chest: Chest palpation & inspection: normal inspection of the chest Resp: Effort & Inspection: normal respiratory effort and able to speak in complete sentences Auscultation: clear to auscultation bilaterally Cardio: Rate: regular rate Rhythm: regular rhythm Heart sounds: S1 normal heart sound present and S2 normal heart sound present GI: Inspection: normal to inspection Skin: General skin exam: normal color and no rashes or lesions noted Neuro: General: patient oriented x3, moves all extremities and no meningeal si gns Cranial nerves: Yes Equal, round and reactive pupils present Speech: normal speech Gait exam (Neuro): Normal gait present Extrem: General: normal to inspection, full ROM and no edema Psych: Appearance: grossly normal and well kempt Mental Status: mental status grossly normal Speech and movement: Normal speech and movement present Affect: normal affect Attitude: cooperative Thought process: Normal thought process present Course Course Emergency Course: Patient is aware of diagnosis, understands and agrees to treatment plan. Anticipatory guidance given. Patient agrees to follow-up as directed and is aware of reasons to seek care at the emergency department. Portions of this record may have been created with voice recognition software Level of Care: Express Care Visit Vital Signs Vital signs: Vital Signs Temperature 36.6 C 07/21/24 12:22 Pulse Rate 79 07/21/24 12:22 Respiratory Rate 16 07/21/24 12:22 Blood Pressure 102/71 07/21/24 12:22 Pulse Oximetry 99 07/21/24 12:22 Temperature 36.6 C 07/21/24 12:22 Pulse Rate 79 07/21/24 12:22 Respiratory Rate 16 07/21/24 12:22 Blood Pressure 102/71 07/21/24 12:22 Pulse Oximetry 99 07/21/24 12:22 Reviewed MDM - Eye Problem MDM Narrative Medical decision making narrative: Pt well hydrated appearing, in no respiratory distress, hemodynamically stable. Recommend supportive care. The patient is stable at time of discharge the clinical impression was discussed and the patient was given the opportunity to ask questions, which were addressed as completely as possible given the information available at present. Anticipatory guidance and return to care precautions were discussed and the importance of primary care follow-up was stressed and encouraged. The patient voiced understanding of the plan, indications to return, and the need for follow-up. Exam findings show no acute concerns or changes Patient is appropriate for outpatient treatment and follow-up. Differential Diagnosis Differential diagnosis: Likely corneal abrasion, conjunctivitis, periorbital cellulitis and other (Chalazion, blepharitis, stye) Medical Records Attestation: I reviewed the patient's medical records. Discharge Plan Discharge Clinical Impression: Blepharitis Qualifiers: Blepharitis type: squamous Laterality: right Eyelid: upper Qualified Code(s): H01.021 - Squamous blepharitis right upper eyelid Patient Disposition: Home, Self-Care Condition: Stable Instructions: Blepharitis (ED) Additional Instructions: Use antibiotic ointment as prescribed Apply warm compress to close the lid for 5-10 minutes, 2-4 times daily. Wash lids with a mixture of baby shampoo and water. Consider artificial tears to treat dry eye. Take a Claritin. If eyelid continues to swell, increased area of redness, or large amounts of crusting around eyelashes, go to primary care provider or eye doctor as that may require antibiotics. If you have any changes in vision go directly to the emergency department. Patient Language: Belgian Prescriptions: New erythromycin 5 mg/gram (0.5 %) ointment 0.5 inch RIGHT EYE QID 5 Days Qty: 3.5 0RF No Action Slynd 4 mg (28) tablet 4 mg PO DAILY prenat.vits,taniya,ytq-[id number] Tablet 1 tablet PO DAILY Follow-up/Referrals: Rodriguez Costa MD [Physician] - 3 Days UNKNOWN,DOCTOR [Primary Care Provider] - Stand Alone Forms: Work/School Release IP Time of Disposition: 12:51
[2024-07-21 12:22] VITALS: BP 102/71; PULSE 79; RESP 16; TEMP 36.6; O2SAT 99
== END 2024-07-21 12:56 | disposition home or self-care (01) ==
PROVIDERS: Emergency Provider Nurse Practitioner Family
DX: H01.021 Squamous blepharitis right upper eyelid (principal)
CPT/HCPCS: 99213; G0463